=== PATIENT | female | born 1980 | race Caucasian/White ===

== ENCOUNTER 2019-12-18 02:36 | Emergency (ER) | payer SELFPAY ==
[~2019-12-18] VITALS: Ht 149.9 cm; Wt 78.5 kg
[2019-12-18] MEDS ORDERED: MORPHINE SULFATE 4 MG/ML, 1ML ONE (02:42)
[2019-12-18] MEDS ORDERED: ONDANSETRON 2MG/ML, 2ML ONE (02:42)
[2019-12-18] MEDS ORDERED: PLEASE ENTER ALLERGIES MC SCH (03:00)
[2019-12-18] MEDS ORDERED: MORPHINE SULFATE 4 MG/ML, 1ML IVPush PRN (03:00)
[2019-12-18] MEDS ORDERED: ONDANSETRON 2MG/ML, 2ML IVPush ONE (03:00)
[2019-12-18 03:01] LABS: BASOPHILS % (AUTO) 2 % (0-1); EOSINOPHILS # (AUTO) 0.14 x10^3/uL (0-0.4); EOSINOPHILS % (AUTO) 1 % (1-7); LYMPHOCYTES # (AUTO) 4.04 x10^3/uL (1-3.4); LYMPHOCYTES % (AUTO) 30 % (22-44); MD NO; MEAN CORPUSCULAR HEMOGLOBIN 29.3 pg (27.0-34.8); MEAN CORPUSCULAR HGB CONC 33.9 g/dL (32.4-35.8); MEAN CORPUSCULAR VOLUME 86.4 fL (80-100); MEAN PLATELET VOLUME 10.8 fL (7.4-10.4); MONOCYTES % (AUTO) 8 % (2-9); NEUTROPHILS # (AUTO) 7.93 x10^3/uL (1.8-6.8); NEUTROPHILS % (AUTO) 59 % (42-75); PLATELET COUNT 242 x10^3/uL (130-400); RED BLOOD COUNT 4.92 x10^6/uL (3.82-5.3); RED CELL DISTRIBUTION WIDTH 13.2 % (9.6-15.2)
[2019-12-18 03:12] LABS: ALBUMIN 3.9 g/dL (3.4-5.0); ANION GAP 6 mmol/L (5-15); CHLORIDE 108 mmol/L (98-107); CREATININE 1.12 mg/dL (0.55-1.02)
--- NOTE | 2019-12-18 03:33 | NUR ---
Patient BIB [facility] c/o RLQ abd pain and nausea which started after sex tonight. Patient states it feels like she is giving . Patient's LMP was approx 3 weeks ago. Patient is in obvious pain. Respirations even and unlabored.
--- NOTE | 2019-12-18 04:05 | NUR ---
Patient resting in gurney stating her pain is much better. Urine collected and sent to lab.
[2019-12-18 04:35] LABS: MICROSCOPIC INDICATED
[2019-12-18 05:04] VITALS: BP 152/81
== END 2019-12-18 05:08 | disposition home or self-care (01) ==
LOC: ED 03:44
DX: N83.292 Other ovarian cyst, left side (principal); R10.2 Pelvic and perineal pain; K59.00 Constipation, unspecified; R10.31 Right lower quadrant pain
CPT/HCPCS: 36415; 76830; 80048; 81001; 82040; 84703; 85025; 87086; 96374; 96375; 99284; J2270; J2405